=== PATIENT | male | born 1945 | race Caucasian/White ===

== ENCOUNTER 2021-03-26 08:26 | Inpatient (IN) ==
[2021-03-26] MEDS ORDERED: 0.9 % Sodium Chloride 1,000 ML ONE ×2 (08:55→09:44)
[2021-03-26] MEDS ORDERED: *HR* Midazolam HCl 2 MG/2 ML VIAL ONE (09:44)
[2021-03-26] MEDS ORDERED: *HR* FentaNYL (PF) 100 MCG/2 ML VIAL ONE (09:44)
[2021-03-26] MEDS ORDERED: *HR* Heparin 10,000 UNIT/10 ML VIAL ONE (09:44)
[2021-03-26] MEDS ORDERED: Heparin 1,000 UNITS/500 mL 500 ML ONE (09:44)
[2021-03-26] MEDS ORDERED: ISOVUE-370 200 ML INFUS..BTL ONE (09:45)
[2021-03-26] MEDS ORDERED: Nitroglycerin 1,000 MCG/5 ML VIAL IV ONE (09:45)
[2021-03-26] MEDS ORDERED: Albuterol 2.5 MG/3 ML NEBULIZER IH PRN (17:57)
[2021-03-26] MEDS ORDERED: Nitroglycerin 0.4 MG TAB.SUBL SL PRN (17:57)
[2021-03-26] MEDS: 0.9 % Sodium Chloride 1,000 ML IVC SCH ×2 (19:09→22:30)
[2021-03-26] MEDS: Gabapentin 400 MG CAPSULE PO SCH (20:57)
[2021-03-26] MEDS: Baclofen 10 MG TABLET PO SCH (20:58)
[2021-03-26] MEDS: Acetaminophen 325 MG TABLET PO PRN (22:29)
[2021-03-26] MEDS: Budesonide/Formoterol 160/4.5 1 PUFF INH IH SCH (22:30)
[2021-03-27 06:43] LABS: Basophils % 0.4 %; Eosinophils # 0.1 K/mcL (0.0-0.6); Hematocrit 45.1 % (37.5-50.1); Hemoglobin 15.2 g/dL (12.9-16.9); Immature Granulocytes % 0.4 % (0-4); Lymphocytes % 28.9 %; Mean Corpuscular HGB Conc 33.7 g/dL (31.6-35.5); Mean Corpuscular Hemoglobin 30.3 pg (28.0-33.3); Mean Platelet Volume 9.2 fL (9.4-12.4); Monocytes # 0.7 K/mcL (0.0-1.3); Monocytes % 10.2 %; Neutrophils # 4.1 K/mcL (1.6-8.9); Platelet Count 218 K/mcL (140-400); Red Blood Count 5.01 M/mcL (4.19-5.50); Red Cell Distribution Width 13.2 % (11.5-14.5); Segmented Neutrophils % 58.1 %
[2021-03-27 07:02] LABS: BUN/Creatinine Ratio 14 (6-26); Blood Urea Nitrogen 12 mg/dL (8-23); Calcium 9.2 mg/dL (8.6-10.3); Carbon Dioxide 26 mEq/L (23-29); Chloride 109 mEq/L (98-107); Glucose 100 mg/dL (70-105); Osmolality,Calculated 292 (280-300); Potassium 4.1 mEq/L (3.5-5.1); Sodium 141 mEq/L (136-145); eGFR For African Americans > 60 (> 60); eGFR For Non-African Americans > 60 (> 60)
[2021-03-27] MEDS ORDERED: Perflutren Lipid Microsphere 1.3 ML in 0.9 % Sodium Chloride 8.7 ML IVP PRN (07:47)
[2021-03-27] MEDS: Gabapentin 400 MG CAPSULE PO SCH ×3 (08:25→22:36)
[2021-03-27] MEDS: 0.9 % Sodium Chloride 1,000 ML IVC SCH (08:25)
[2021-03-27] MEDS: Metoprolol XL (24 HR) Succ 50 MG TAB.ER.24H PO SCH (08:25)
[2021-03-27] MEDS: Aspirin 81 MG TAB.CHEW PO SCH (08:25)
[2021-03-27] MEDS: Baclofen 10 MG TABLET PO SCH ×2 (08:26→22:36)
[2021-03-27] MEDS ORDERED: amLODIPine 5 MG TABLET PO SCH ×2 (09:00)
[2021-03-27] MEDS ORDERED: Chlorhexidine Rinse 15 ML MOUTHWASH MM SCH (09:00)
[2021-03-27] MEDS ORDERED: amLODIPine 5 MG TABLET PO ONE (09:12)
[2021-03-27 09:22] LABS: Estimated Average Glucose 120 mg/dl; Hemoglobin A1C 5.8 %
[2021-03-27] MEDS: Budesonide/Formoterol 160/4.5 1 PUFF INH IH SCH ×2 (10:08→19:41)
[2021-03-27] MEDS: Tiotropium 10 INH DOSE IH SCH (10:08)
[2021-03-28] MEDS: Budesonide/Formoterol 160/4.5 1 PUFF INH IH SCH ×2 (07:39→20:01)
[2021-03-28] MEDS: Tiotropium 10 INH DOSE IH SCH (07:40)
[2021-03-28] MEDS: Isosorbide MONOnitrate (24 HR) 30 MG TAB.ER.24H PO SCH (10:01)
[2021-03-28] MEDS: Baclofen 10 MG TABLET PO SCH ×2 (10:01→21:48)
[2021-03-28] MEDS: Aspirin 81 MG TAB.CHEW PO SCH (10:01)
[2021-03-28] MEDS: Metoprolol XL (24 HR) Succ 50 MG TAB.ER.24H PO SCH (10:01)
[2021-03-28] MEDS: amLODIPine 5 MG TABLET PO SCH (10:01)
[2021-03-28] MEDS: Gabapentin 400 MG CAPSULE PO SCH ×3 (10:01→21:48)
[2021-03-29] MEDS: Tiotropium 10 INH DOSE IH SCH (07:32)
[2021-03-29] MEDS: Budesonide/Formoterol 160/4.5 1 PUFF INH IH SCH ×2 (07:32→20:02)
[2021-03-29] MEDS: Metoprolol XL (24 HR) Succ 50 MG TAB.ER.24H PO SCH (09:31)
[2021-03-29] MEDS: Baclofen 10 MG TABLET PO SCH ×2 (09:32→20:57)
[2021-03-29] MEDS: Isosorbide MONOnitrate (24 HR) 30 MG TAB.ER.24H PO SCH (09:32)
[2021-03-29] MEDS: amLODIPine 5 MG TABLET PO SCH (09:32)
[2021-03-29] MEDS: Aspirin 81 MG TAB.CHEW PO SCH (09:32)
[2021-03-29] MEDS: Gabapentin 400 MG CAPSULE PO SCH ×3 (09:32→20:56)
[2021-03-29] MEDS: Chlorhexidine Rinse 15 ML MOUTHWASH MM SCH (20:57)
[2021-03-29] MEDS: Acetaminophen 325 MG TABLET PO PRN (22:02)
[2021-03-30 00:07] LABS: Adenovirus Not Detected (Not Detect); Coronavirus 229E Not Detected (Not Detect); Coronavirus HKU1 Not Detected (Not Detect); Coronavirus NL63 Not Detected (Not Detect); Coronavirus OC43 Not Detected (Not Detect); SARS-CoV-2 Not Detected (Not Detect)
[2021-03-30 00:08] LABS: Bordetella Pertussis Not Detected (Not Detect); Chlamydophila pneumoniae Not Detected (Not Detect); Human Metapneumovirus Not Detected (Not Detect); Human Rhinovirus/Enterovirus Not Detected (Not Detect); Influenza A Subtype 2009 H1 Not Detected (Not Detect); Influenza B Not Detected (Not Detect); Mycoplasma pneumoniae Not Detected (Not Detect); Parainfluenza Virus 1 Not Detected (Not Detect); Parainfluenza Virus 2 Not Detected (Not Detect); Parainfluenza Virus 3 Not Detected (Not Detect); Parainfluenza Virus 4 Not Detected (Not Detect); Respiratory Syncytial Virus Not Detected (Not Detect)
[2021-03-30] MEDS: Chlorhexidine Rinse 15 ML MOUTHWASH MM SCH ×2 (05:57→19:46)
[2021-03-30] MEDS ORDERED: Aspirin 81 MG TAB.CHEW PO ONE (06:00)
[2021-03-30] MEDS ORDERED: *HR* Vasopressin 20 UNIT/ML VIAL ONE (06:53)
[2021-03-30] MEDS ORDERED: *HR* FentaNYL (PF) 1,000 MCG/20 ML VIAL ONE (06:56)
[2021-03-30] MEDS ORDERED: *HR* Midazolam HCl 5 MG/5 ML VIAL IVP ONE (06:56)
[2021-03-30] MEDS ORDERED: *HR* Propofol 200 MG/20 ML VIAL IVP ONE (06:56)
[2021-03-30] MEDS ORDERED: Lidocaine 2% Syringe 100 MG/5 ML ONE (06:57)
[2021-03-30] MEDS ORDERED: Famotidine 20 MG/2 ML VIAL ONE (06:57)
[2021-03-30] MEDS ORDERED: *HR* Rocuronium Bromide 50 MG/5 ML VIAL ONE ×2 (06:57→09:35)
[2021-03-30] MEDS ORDERED: *HR* Magnesium Sulfate 1 GM/2 ML VIAL ONE (06:57)
[2021-03-30] MEDS ORDERED: Tranexamic Acid 1,000 MG/10 ML VIAL ONE (06:59)
[2021-03-30] MEDS ORDERED: Papaverine 60 MG/2 ML VIAL IVP ONE (06:59)
[2021-03-30] MEDS ORDERED: CeFAZolin Syr 2,000MG/20 ML 2,000 MG/20 ML SYRINGE IVPB ONE (07:00)
[2021-03-30] MEDS: Budesonide/Formoterol 160/4.5 1 PUFF INH IH SCH ×2 (07:18→19:46)
[2021-03-30] MEDS: Tiotropium 10 INH DOSE IH SCH (07:18)
[2021-03-30] MEDS ORDERED: Heparin 15,000 UNIT in 0.9 % Sodium Chloride 500 ML IV ONE (07:45)
[2021-03-30] MEDS ORDERED: Dextrose 50 % in Water (Vial) 30 ML, Sodium Bicarbonate 20 MEQ, Potassium Chloride 15 M... TH ONE (07:45)
[2021-03-30] MEDS ORDERED: Norepinephrine 4 MG in 0.9 % Sodium Chloride 250 ML IVC PRN (07:45)
[2021-03-30] MEDS ORDERED: Dextrose 50 % in Water (Vial) 30 ML, Sodium Bicarbonate 20 MEQ, Lidocaine 1% 5 ML, Insu... TH ONE ×3 (07:45)
[2021-03-30 08:11] LABS: ABG Base Excess -1 mEq/L (-2 to 3); ABG Chloride 107 mEq/L (98-107); ABG Glucose 110 mg/dL (60-95); ABG HCO3 25 mEq/L (21-27); ABG Ionized Calcium 1.27 mmol/L (1.15-1.35); ABG Oxygen Saturation 99 % (95-98); ABG PCO2 48 mmHg (35-45); ABG PH 7.33 pH Units (7.32-7.45); ABG PO2 162 mmHg (85-104); ABG TCO2 27 mEq/L (20-26)
[2021-03-30] MEDS ORDERED: *HR* FentaNYL (PF) 250 MCG/5 ML VIAL ONE (09:20)
[2021-03-30 09:36] LABS: ABG Base Excess -2 mEq/L (-2 to 3); ABG Chloride 110 mEq/L (98-107); ABG Glucose 115 mg/dL (60-95); ABG HCO3 23 mEq/L (21-27); ABG Ionized Calcium 1.15 mmol/L (1.15-1.35); ABG Oxygen Saturation 100 % (95-98); ABG PCO2 40 mmHg (35-45); ABG PH 7.37 pH Units (7.32-7.45); ABG PO2 220 mmHg (85-104); ABG TCO2 24 mEq/L (20-26)
[2021-03-30] MEDS ORDERED: Calcium Gluconate 1,000 MG/10 ML VIAL ONE (09:47)
[2021-03-30] MEDS ORDERED: Protamine Sulfate 250 MG/25 ML VIAL IVP ONE (09:47)
[2021-03-30] MEDS ORDERED: Protamine Sulfate 50 MG/5 ML VIAL IVP ONE (09:47)
[2021-03-30 10:13] LABS: ABG Base Excess 1 mEq/L (-2 to 3); ABG Chloride 100 mEq/L (98-107); ABG Glucose 191 mg/dL (60-95); ABG HCO3 26 mEq/L (21-27); ABG Oxygen Saturation 100 % (95-98); ABG PCO2 44 mmHg (35-45); ABG PH 7.38 pH Units (7.32-7.45); ABG PO2 355 mmHg (85-104); ABG TCO2 27 mEq/L (20-26)
[2021-03-30 10:35] LABS: ABG Base Excess 1 mEq/L (-2 to 3); ABG Chloride 102 mEq/L (98-107); ABG Glucose 196 mg/dL (60-95); ABG HCO3 26 mEq/L (21-27); ABG Ionized Calcium 1.02 mmol/L (1.15-1.35); ABG Oxygen Saturation 100 % (95-98); ABG PCO2 46 mmHg (35-45); ABG PH 7.37 pH Units (7.32-7.45); ABG PO2 305 mmHg (85-104); ABG TCO2 28 mEq/L (20-26)
[2021-03-30 11:01] LABS: ABG Base Excess 1 mEq/L (-2 to 3); ABG Chloride 103 mEq/L (98-107); ABG Glucose 160 mg/dL (60-95); ABG HCO3 26 mEq/L (21-27); ABG Ionized Calcium 1.05 mmol/L (1.15-1.35); ABG Oxygen Saturation 100 % (95-98); ABG PCO2 44 mmHg (35-45); ABG PH 7.38 pH Units (7.32-7.45); ABG PO2 259 mmHg (85-104); ABG TCO2 27 mEq/L (20-26)
[2021-03-30] MEDS ORDERED: Mannitol 25% vial 12.5 GM/50 ML VIAL IVPB ONE (11:11)
[2021-03-30] MEDS ORDERED: Albumin Human 25% 25 GM/100 ML IV.SOLN IVPB ONE (11:11)
[2021-03-30] MEDS ORDERED: Clindamycin 600 MG/50 ML IV.SOLN IVPB ONE (11:11)
[2021-03-30] MEDS ORDERED: *HR* Heparin 10,000 UNIT/10 ML VIAL IR ONE (11:11)
[2021-03-30] MEDS ORDERED: Lidocaine 2% Syringe 100 MG/5 ML IVP ONE (11:11)
[2021-03-30] MEDS ORDERED: D5% in Water 250 ML IV BAG IV ONE (11:11)
[2021-03-30] MEDS ORDERED: Heparin 1,000 UNITS/500 mL IV.SOLN IR ONE (11:11)
[2021-03-30] MEDS ORDERED: Tranexamic Acid 1,000 MG/10 ML VIAL IR ONE (11:11)
[2021-03-30] MEDS ORDERED: *HR* Phenylephrine 10 MG/ML VIAL IVC ONE (11:11)
[2021-03-30] MEDS ORDERED: *HR* Magnesium Sulfate 2 GM/50 ML PIGGYBACK IVPB ONE (11:11)
[2021-03-30] MEDS ORDERED: Albumin Human 5% 25.0 GM/500 ML IV.SOLN ONE (11:29)
[2021-03-30 11:49] LABS: ABG Base Excess -1 mEq/L (-2 to 3); ABG Chloride 106 mEq/L (98-107); ABG Glucose 97 mg/dL (60-95); ABG HCO3 23 mEq/L (21-27); ABG Ionized Calcium 1.26 mmol/L (1.15-1.35); ABG Oxygen Saturation 98 % (95-98); ABG PCO2 37 mmHg (35-45); ABG PH 7.41 pH Units (7.32-7.45); ABG PO2 111 mmHg (85-104); ABG TCO2 25 mEq/L (20-26)
[2021-03-30] MEDS ORDERED: Naloxone 0.4 MG/ML INJ IVP PRN (12:12)
[2021-03-30] MEDS ORDERED: Insulin Regular, Human 100 UNIT/ML IV PRN (12:12)
[2021-03-30] MEDS ORDERED: *HR* Dextrose 50 % in Water (Vial) 50 ML VIAL IVP PRN (12:12)
[2021-03-30] MEDS ORDERED: Albumin Human 5% 12.5 GM/250 ML IV.SOLN IVPB PRN (12:12)
[2021-03-30] MEDS ORDERED: Sennosides 8.6 MG TABLET PO PRN (12:12)
[2021-03-30] MEDS ORDERED: Potassium Chloride 40 MEQ/200 ML BAG IVPB PRN (12:12)
[2021-03-30 12:45] LABS: ABG Base Excess 1 mEq/L (-2 to 3); ABG HCO3 27 mEq/L (21-27); ABG Oxygen Saturation 100 % (95-98); ABG PCO2 47 mmHg (35-45); ABG PH 7.36 pH Units (7.32-7.45); ABG PO2 238 mmHg (85-104); ABG TCO2 28 mEq/L (20-26); Blood Gas Modality ASSIST CONTROL; Blood Gas VT 650 cc
[2021-03-30] MEDS: 0.9 % Sodium Chloride 1,000 ML IVC SCH (13:00)
[2021-03-30 13:02] LABS: Basophils % 0.2 %; Eosinophils # 0.1 K/mcL (0.0-0.6); Eosinophils % 0.6 %; Hematocrit 33.9 % (37.5-50.1); Immature Granulocytes % 1.3 % (0-4); Lymphocytes % 12.8 %; Mean Corpuscular HGB Conc 34.2 g/dL (31.6-35.5); Mean Corpuscular Hemoglobin 30.5 pg (28.0-33.3); Mean Corpuscular Volume 89.2 fL (83.0-100.0); Mean Platelet Volume 9.2 fL (9.4-12.4); Monocytes % 6.4 %; Neutrophils # 12.4 K/mcL (1.6-8.9); Platelet Count 145 K/mcL (140-400); Red Cell Distribution Width 13.2 % (11.5-14.5); Segmented Neutrophils % 78.7 %
[2021-03-30 13:03] LABS: Hemoglobin 11.6 g/dL (12.9-16.9); White Blood Count 15.7 K/mcL (4.3-11.1)
[2021-03-30 13:09] LABS: INR 1.2
[2021-03-30 13:11] LABS: Activated Partial Thrombo Time 26.2 Seconds (26.0-36.0)
[2021-03-30 13:14] LABS: Prothrombin Time 14.2 Seconds (9.4-12.1)
[2021-03-30 13:17] LABS: BUN/Creatinine Ratio 18 (6-26); Blood Urea Nitrogen 17 mg/dL (8-23); Calcium 8.5 mg/dL (8.6-10.3); Carbon Dioxide 25 mEq/L (23-29); Chloride 109 mEq/L (98-107); Glucose 92 mg/dL (70-105); Magnesium 3.1 mg/dL (1.6-2.6); Osmolality,Calculated 293 (280-300); Potassium 3.6 mEq/L (3.5-5.1); Sodium 141 mEq/L (136-145); eGFR For African Americans > 60 (> 60); eGFR For Non-African Americans > 60 (> 60)
[2021-03-30] MEDS: Baclofen 10 MG TABLET PO SCH ×2 (13:28→19:26)
[2021-03-30] MEDS: Gabapentin 400 MG CAPSULE PO SCH ×3 (13:28→19:45)
[2021-03-30] MEDS: Isosorbide MONOnitrate (24 HR) 30 MG TAB.ER.24H PO SCH (13:28)
[2021-03-30] MEDS: Metoprolol XL (24 HR) Succ 50 MG TAB.ER.24H PO SCH (13:28)
[2021-03-30] MEDS ORDERED: Amiodarone Premix 360 MG/200 ML BAG IVC ONE (13:31)
[2021-03-30] MEDS: Norepinephrine 4 MG/254 ML IV.SOLN IVC SCH (13:46)
[2021-03-30] MEDS: *HR* FentaNYL (PF) 100 MCG/2 ML VIAL IVP PRN ×3 (14:23→20:30)
[2021-03-30] MEDS: CeFAZolin 2 GM/120 ML BAG IVPB SCH ×2 (15:12→23:02)
[2021-03-30] MEDS: niCARdipine 20 MG/200 ML MLS IVC SCH ×4 (15:53→23:03)
[2021-03-30 16:10] LABS: ABG Base Excess -1 mEq/L (-2 to 3); ABG HCO3 23 mEq/L (21-27); ABG Oxygen Saturation 97 % (95-98); ABG PCO2 33 mmHg (35-45); ABG PH 7.45 pH Units (7.32-7.45); ABG PO2 87 mmHg (85-104); ABG TCO2 24 mEq/L (20-26); Blood Gas VT 650 cc
[2021-03-30 18:32] LABS: ABG Base Excess 0 mEq/L (-2 to 3); ABG HCO3 24 mEq/L (21-27); ABG Oxygen Saturation 97 % (95-98); ABG PCO2 34 mmHg (35-45); ABG PH 7.45 pH Units (7.32-7.45); ABG PO2 87 mmHg (85-104); ABG TCO2 25 mEq/L (20-26); Blood Gas Pressure Support 12 cm H2O
[2021-03-30] MEDS ORDERED: Ondansetron 4 MG/2 ML VIAL ONE (18:41)
[2021-03-30] MEDS: Ondansetron 4 MG/2 ML VIAL IVP PRN (19:03)
[2021-03-30] MEDS: Amiodarone Premix 360 MG/200 ML BAG IVC SCH (19:26)
[2021-03-30 20:08] LABS: ABG Base Excess -2 mEq/L (-2 to 3); ABG HCO3 23 mEq/L (21-27); ABG Oxygen Saturation 96 % (95-98); ABG PCO2 38 mmHg (35-45); ABG PH 7.39 pH Units (7.32-7.45); ABG PO2 84 mmHg (85-104); ABG TCO2 24 mEq/L (20-26)
[2021-03-31] MEDS: *HR* FentaNYL (PF) 100 MCG/2 ML VIAL IVP PRN ×7 (01:07→16:02)
[2021-03-31] MEDS: Ondansetron 4 MG/2 ML VIAL IVP PRN ×3 (01:07→19:42)
[2021-03-31] MEDS: niCARdipine 20 MG/200 ML MLS IVC SCH ×5 (03:33→20:24)
[2021-03-31] MEDS: 0.9 % Sodium Chloride 1,000 ML IVC SCH (03:56)
[2021-03-31 04:21] LABS: Basophils % 0.1 %; Hematocrit 30.5 % (37.5-50.1); Hemoglobin 10.4 g/dL (12.9-16.9); Immature Granulocytes % 0.6 % (0-4); Lymphocytes # 1.6 K/mcL (0.6-4.6); Lymphocytes % 9.6 %; Mean Corpuscular HGB Conc 34.1 g/dL (31.6-35.5); Mean Corpuscular Volume 87.9 fL (83.0-100.0); Mean Platelet Volume 9.6 fL (9.4-12.4); Monocytes # 1.7 K/mcL (0.0-1.3); Monocytes % 10.4 %; Neutrophils # 13.3 K/mcL (1.6-8.9); Platelet Count 133 K/mcL (140-400); Red Blood Count 3.47 M/mcL (4.19-5.50); Red Cell Distribution Width 13.4 % (11.5-14.5); Segmented Neutrophils % 79.3 %; White Blood Count 16.7 K/mcL (4.3-11.1)
[2021-03-31 04:44] LABS: BUN/Creatinine Ratio 24 (6-26); Blood Urea Nitrogen 19 mg/dL (8-23); Calcium 8.1 mg/dL (8.6-10.3); Carbon Dioxide 22 mEq/L (23-29); Chloride 109 mEq/L (98-107); Glucose 159 mg/dL (70-105); Osmolality,Calculated 294 (280-300); Sodium 139 mEq/L (136-145); eGFR For African Americans > 60 (> 60); eGFR For Non-African Americans > 60 (> 60)
[2021-03-31] MEDS: Amiodarone Premix 360 MG/200 ML BAG IVC SCH ×2 (07:30→19:42)
[2021-03-31] MEDS: Aspirin Enteric Coated 81 MG Tablet PO SCH (07:36)
[2021-03-31] MEDS: Gabapentin 400 MG CAPSULE PO SCH ×3 (07:36→19:43)
[2021-03-31] MEDS: Metoprolol XL (24 HR) Succ 50 MG TAB.ER.24H PO SCH (07:36)
[2021-03-31] MEDS: Isosorbide MONOnitrate (24 HR) 30 MG TAB.ER.24H PO SCH (07:37)
[2021-03-31] MEDS: Baclofen 10 MG TABLET PO SCH ×2 (07:37→19:43)
[2021-03-31] MEDS: Chlorhexidine Rinse 15 ML MOUTHWASH MM SCH ×2 (07:37→19:42)
[2021-03-31] MEDS: Tiotropium 10 INH DOSE IH SCH (07:42)
[2021-03-31] MEDS: Budesonide/Formoterol 160/4.5 1 PUFF INH IH SCH ×2 (07:42→19:44)
[2021-03-31] MEDS ORDERED: Furosemide 20 MG/2 ML VIAL IVP ONE (08:42)
[2021-03-31] MEDS ORDERED: amLODIPine 5 MG TABLET PO SCH (09:00)
[2021-03-31] MEDS ORDERED: Pantoprazole 40 MG VIAL IVP SCH (09:00)
[2021-03-31] MEDS: Norepinephrine 4 MG/254 ML IV.SOLN IVC SCH (13:19)
[2021-03-31] MEDS: Ketorolac 15 MG/ML VIAL IVP SCH ×2 (17:19→23:22)
[2021-04-01] MEDS: niCARdipine 20 MG/200 ML MLS IVC SCH ×3 (03:07→07:13)
[2021-04-01 04:33] LABS: Basophils % 0.1 %; Hematocrit 27.3 % (37.5-50.1); Hemoglobin 9.1 g/dL (12.9-16.9); Immature Granulocytes % 0.6 % (0-4); Lymphocytes # 2.6 K/mcL (0.6-4.6); Lymphocytes % 17.5 %; Mean Corpuscular HGB Conc 33.3 g/dL (31.6-35.5); Mean Corpuscular Hemoglobin 30.6 pg (28.0-33.3); Mean Corpuscular Volume 91.9 fL (83.0-100.0); Mean Platelet Volume 9.7 fL (9.4-12.4); Monocytes # 1.8 K/mcL (0.0-1.3); Monocytes % 12.1 %; Neutrophils # 10.2 K/mcL (1.6-8.9); Platelet Count 110 K/mcL (140-400); Red Blood Count 2.97 M/mcL (4.19-5.50); Red Cell Distribution Width 13.8 % (11.5-14.5); Segmented Neutrophils % 69.7 %; White Blood Count 14.7 K/mcL (4.3-11.1)
[2021-04-01 04:46] LABS: BUN/Creatinine Ratio 31 (6-26); Blood Urea Nitrogen 29 mg/dL (8-23); Calcium 8.1 mg/dL (8.6-10.3); Carbon Dioxide 28 mEq/L (23-29); Chloride 105 mEq/L (98-107); Glucose 118 mg/dL (70-105); Osmolality,Calculated 293 (280-300); Potassium 3.9 mEq/L (3.5-5.1); Sodium 138 mEq/L (136-145); eGFR For African Americans > 60 (> 60); eGFR For Non-African Americans > 60 (> 60)
[2021-04-01] MEDS: Ketorolac 15 MG/ML VIAL IVP SCH ×4 (05:09→23:27)
[2021-04-01] MEDS: Aspirin Enteric Coated 81 MG Tablet PO SCH ×2 (07:14→09:44)
[2021-04-01] MEDS: Gabapentin 400 MG CAPSULE PO SCH ×4 (07:14→19:40)
[2021-04-01] MEDS: Amiodarone Premix 360 MG/200 ML BAG IVC SCH (07:14)
[2021-04-01] MEDS: Chlorhexidine Rinse 15 ML MOUTHWASH MM SCH ×3 (07:15→19:41)
[2021-04-01] MEDS: Metoprolol XL (24 HR) Succ 50 MG TAB.ER.24H PO SCH ×2 (07:15→09:45)
[2021-04-01] MEDS: Baclofen 10 MG TABLET PO SCH ×3 (07:15→19:41)
[2021-04-01] MEDS: Tiotropium 10 INH DOSE IH SCH ×2 (07:41→11:06)
[2021-04-01] MEDS: Budesonide/Formoterol 160/4.5 1 PUFF INH IH SCH ×3 (07:46→20:10)
[2021-04-01] MEDS ORDERED: Albuterol 2.5 MG/3 ML NEBULIZER IH PRN (08:18)
[2021-04-01] MEDS ORDERED: Dextrose Gel 15 GM/37.5 ML TUBE PO PRN ×2 (08:18)
[2021-04-01] MEDS ORDERED: Naloxone 0.4 MG/ML INJ IVP PRN (08:18)
[2021-04-01] MEDS ORDERED: Nitroglycerin 0.4 MG TAB.SUBL SL PRN (08:18)
[2021-04-01] MEDS ORDERED: D5% in Water 1,000 ML IVC PRN (08:18)
[2021-04-01] MEDS ORDERED: Acetaminophen 325 MG TABLET PO PRN (08:18)
[2021-04-01] MEDS ORDERED: Amiodarone Premix 360 MG/200 ML BAG IVC SCH (08:18)
[2021-04-01] MEDS ORDERED: *HR* Dextrose 50 % in Water (Vial) 50 ML VIAL IVP PRN (08:18)
[2021-04-01] MEDS ORDERED: *HR* Amiodarone 200 MG TABLET PO SCH (09:00)
[2021-04-01] MEDS: Ondansetron 4 MG/2 ML VIAL IVP PRN ×2 (09:10→19:40)
[2021-04-01] MEDS: Isosorbide MONOnitrate (24 HR) 30 MG TAB.ER.24H PO SCH (09:45)
[2021-04-01] MEDS: *HR* Amiodarone 200 MG TABLET PO SCH ×2 (09:54→19:41)
[2021-04-01] MEDS: Insulin LISPRO 300 UNITS/3 ML VIAL SUBQ SCH ×3 (12:23→19:44)
[2021-04-01] MEDS: *HR* Heparin 5,000 UNIT/ML VIAL SQ SCH (17:50)
[2021-04-02 05:42] LABS: Basophils % 0.1 %; Eosinophils # 0.1 K/mcL (0.0-0.6); Eosinophils % 0.6 %; Hematocrit 27.8 % (37.5-50.1); Hemoglobin 8.9 g/dL (12.9-16.9); Immature Granulocytes % 0.7 % (0-4); Lymphocytes # 1.7 K/mcL (0.6-4.6); Lymphocytes % 15.1 %; Mean Corpuscular Hemoglobin 30.2 pg (28.0-33.3); Mean Corpuscular Volume 94.2 fL (83.0-100.0); Mean Platelet Volume 10.2 fL (9.4-12.4); Monocytes # 1.2 K/mcL (0.0-1.3); Monocytes % 10.4 %; Neutrophils # 8.1 K/mcL (1.6-8.9); Platelet Count 112 K/mcL (140-400); Red Blood Count 2.95 M/mcL (4.19-5.50); Red Cell Distribution Width 13.8 % (11.5-14.5); Segmented Neutrophils % 73.1 %; White Blood Count 11.1 K/mcL (4.3-11.1)
[2021-04-02 06:11] LABS: BUN/Creatinine Ratio 34 (6-26); Blood Urea Nitrogen 26 mg/dL (8-23); Calcium 8.2 mg/dL (8.6-10.3); Carbon Dioxide 30 mEq/L (23-29); Chloride 106 mEq/L (98-107); Glucose 102 mg/dL (70-105); Osmolality,Calculated 289 (280-300); Potassium 3.9 mEq/L (3.5-5.1); Sodium 137 mEq/L (136-145); eGFR For African Americans > 60 (> 60); eGFR For Non-African Americans > 60 (> 60)
[2021-04-02] MEDS: *HR* Heparin 5,000 UNIT/ML VIAL SQ SCH ×2 (06:12→17:56)
[2021-04-02] MEDS: Ketorolac 15 MG/ML VIAL IVP SCH ×4 (06:14→23:08)
[2021-04-02] MEDS: Chlorhexidine Rinse 15 ML MOUTHWASH MM SCH ×2 (07:50→20:12)
[2021-04-02] MEDS: Gabapentin 400 MG CAPSULE PO SCH ×3 (07:50→20:13)
[2021-04-02] MEDS: Metoprolol XL (24 HR) Succ 50 MG TAB.ER.24H PO SCH (07:51)
[2021-04-02] MEDS: *HR* Amiodarone 200 MG TABLET PO SCH ×2 (07:51→20:12)
[2021-04-02] MEDS: Baclofen 10 MG TABLET PO SCH ×2 (07:51→20:13)
[2021-04-02] MEDS: Aspirin Enteric Coated 81 MG Tablet PO SCH (07:51)
[2021-04-02] MEDS: Isosorbide MONOnitrate (24 HR) 30 MG TAB.ER.24H PO SCH (07:52)
[2021-04-02] MEDS: Insulin LISPRO 300 UNITS/3 ML VIAL SUBQ SCH ×4 (07:52→20:13)
[2021-04-02] MEDS: Budesonide/Formoterol 160/4.5 1 PUFF INH IH SCH ×2 (07:53→23:32)
[2021-04-02] MEDS: Tiotropium 10 INH DOSE IH SCH (07:53)
[2021-04-02] MEDS ORDERED: MOM Conc 10 ML UD.LIQ PO PRN (08:59)
[2021-04-02] MEDS: Ondansetron 4 MG/2 ML VIAL IVP PRN (13:58)
[2021-04-03] MEDS: Ketorolac 15 MG/ML VIAL IVP SCH ×3 (05:01→16:19)
[2021-04-03] MEDS: *HR* Heparin 5,000 UNIT/ML VIAL SQ SCH ×2 (05:01→16:18)
[2021-04-03 05:34] LABS: Basophils % 0.1 %; Eosinophils # 0.2 K/mcL (0.0-0.6); Eosinophils % 2.1 %; Hematocrit 25.5 % (37.5-50.1); Hemoglobin 8.3 g/dL (12.9-16.9); Immature Granulocytes % 0.9 % (0-4); Lymphocytes # 1.2 K/mcL (0.6-4.6); Lymphocytes % 14.7 %; Mean Corpuscular HGB Conc 32.5 g/dL (31.6-35.5); Mean Corpuscular Hemoglobin 30.3 pg (28.0-33.3); Mean Corpuscular Volume 93.1 fL (83.0-100.0); Mean Platelet Volume 10.6 fL (9.4-12.4); Monocytes # 0.9 K/mcL (0.0-1.3); Monocytes % 10.5 %; Neutrophils # 6.1 K/mcL (1.6-8.9); Platelet Count 140 K/mcL (140-400); Red Blood Count 2.74 M/mcL (4.19-5.50); Red Cell Distribution Width 13.7 % (11.5-14.5); Segmented Neutrophils % 71.7 %; White Blood Count 8.5 K/mcL (4.3-11.1)
[2021-04-03 05:55] LABS: BUN/Creatinine Ratio 38 (6-26); Blood Urea Nitrogen 31 mg/dL (8-23); Calcium 8.4 mg/dL (8.6-10.3); Carbon Dioxide 32 mEq/L (23-29); Chloride 102 mEq/L (98-107); Glucose 104 mg/dL (70-105); Osmolality,Calculated 293 (280-300); Potassium 3.8 mEq/L (3.5-5.1); Sodium 138 mEq/L (136-145); eGFR For African Americans > 60 (> 60); eGFR For Non-African Americans > 60 (> 60)
[2021-04-03] MEDS: Budesonide/Formoterol 160/4.5 1 PUFF INH IH SCH ×2 (07:36→19:59)
[2021-04-03] MEDS: Tiotropium 10 INH DOSE IH SCH (07:36)
[2021-04-03] MEDS: Chlorhexidine Rinse 15 ML MOUTHWASH MM SCH ×2 (07:58→20:30)
[2021-04-03] MEDS: Aspirin Enteric Coated 81 MG Tablet PO SCH (07:58)
[2021-04-03] MEDS: Baclofen 10 MG TABLET PO SCH ×2 (07:59→20:30)
[2021-04-03] MEDS: Gabapentin 400 MG CAPSULE PO SCH ×3 (07:59→20:30)
[2021-04-03] MEDS: Isosorbide MONOnitrate (24 HR) 30 MG TAB.ER.24H PO SCH (07:59)
[2021-04-03] MEDS: Metoprolol XL (24 HR) Succ 50 MG TAB.ER.24H PO SCH (07:59)
[2021-04-03] MEDS: *HR* Amiodarone 200 MG TABLET PO SCH ×2 (08:00→20:30)
[2021-04-03] MEDS: Insulin LISPRO 300 UNITS/3 ML VIAL SUBQ SCH ×4 (08:05→20:31)
[2021-04-03] MEDS: Ondansetron 4 MG/2 ML VIAL IVP PRN ×2 (09:49→20:31)
[2021-04-04] MEDS: *HR* Heparin 5,000 UNIT/ML VIAL SQ SCH ×2 (05:40→16:45)
[2021-04-04] MEDS: Tiotropium 10 INH DOSE IH SCH (07:42)
[2021-04-04] MEDS: Budesonide/Formoterol 160/4.5 1 PUFF INH IH SCH ×2 (07:42→20:10)
[2021-04-04] MEDS: Insulin LISPRO 300 UNITS/3 ML VIAL SUBQ SCH ×4 (08:06→20:59)
[2021-04-04] MEDS: Isosorbide MONOnitrate (24 HR) 30 MG TAB.ER.24H PO SCH (08:11)
[2021-04-04] MEDS: Metoprolol XL (24 HR) Succ 50 MG TAB.ER.24H PO SCH (08:11)
[2021-04-04] MEDS: Baclofen 10 MG TABLET PO SCH ×2 (08:11→21:02)
[2021-04-04] MEDS: *HR* Amiodarone 200 MG TABLET PO SCH ×2 (08:11→21:03)
[2021-04-04] MEDS: Chlorhexidine Rinse 15 ML MOUTHWASH MM SCH ×2 (08:11→21:04)
[2021-04-04] MEDS: Aspirin Enteric Coated 81 MG Tablet PO SCH (08:11)
[2021-04-04] MEDS: Gabapentin 400 MG CAPSULE PO SCH ×3 (08:11→21:03)
[2021-04-04] MEDS: polyethylene glycoL 3350 17 GM POWD.PACK PO SCH (10:47)
[2021-04-04] MEDS: Amoxicillin/Clavulanate 500 MG TABLET PO SCH ×3 (10:47→21:04)
[2021-04-04] MEDS: Ondansetron 4 MG/2 ML VIAL IVP PRN (10:48)
[2021-04-04] MEDS: Sennosides 8.6 MG TABLET PO PRN ×2 (10:48→21:03)
[2021-04-05 00:26] LABS: Basophils % 0.2 %; Eosinophils # 0.3 K/mcL (0.0-0.6); Eosinophils % 2.6 %; Hematocrit 28.9 % (37.5-50.1); Hemoglobin 9.8 g/dL (12.9-16.9); Immature Granulocytes % 1.9 % (0-4); Lymphocytes # 1.6 K/mcL (0.6-4.6); Lymphocytes % 16.8 %; Mean Corpuscular HGB Conc 33.9 g/dL (31.6-35.5); Mean Corpuscular Hemoglobin 31.3 pg (28.0-33.3); Mean Corpuscular Volume 92.3 fL (83.0-100.0); Mean Platelet Volume 9.6 fL (9.4-12.4); Monocytes # 1.1 K/mcL (0.0-1.3); Monocytes % 11.7 %; Neutrophils # 6.3 K/mcL (1.6-8.9); Platelet Count 224 K/mcL (140-400); Red Blood Count 3.13 M/mcL (4.19-5.50); Red Cell Distribution Width 13.4 % (11.5-14.5); Segmented Neutrophils % 66.8 %; White Blood Count 9.5 K/mcL (4.3-11.1)
[2021-04-05 01:05] LABS: BUN/Creatinine Ratio 24 (6-26); Blood Urea Nitrogen 16 mg/dL (8-23); Calcium 8.7 mg/dL (8.6-10.3); Carbon Dioxide 32 mEq/L (23-29); Chloride 99 mEq/L (98-107); Glucose 117 mg/dL (70-105); Osmolality,Calculated 286 (280-300); Potassium 4.1 mEq/L (3.5-5.1); Sodium 137 mEq/L (136-145); eGFR For African Americans > 60 (> 60); eGFR For Non-African Americans > 60 (> 60)
[2021-04-05] MEDS: *HR* Heparin 5,000 UNIT/ML VIAL SQ SCH ×2 (05:56→17:05)
[2021-04-05] MEDS: Insulin LISPRO 300 UNITS/3 ML VIAL SUBQ SCH ×4 (07:30→21:15)
[2021-04-05] MEDS: polyethylene glycoL 3350 17 GM POWD.PACK PO SCH (07:40)
[2021-04-05] MEDS: Chlorhexidine Rinse 15 ML MOUTHWASH MM SCH ×2 (07:40→21:15)
[2021-04-05] MEDS: Aspirin Enteric Coated 81 MG Tablet PO SCH (07:41)
[2021-04-05] MEDS: Metoprolol XL (24 HR) Succ 50 MG TAB.ER.24H PO SCH (07:41)
[2021-04-05] MEDS: Amoxicillin/Clavulanate 500 MG TABLET PO SCH ×3 (07:41→21:15)
[2021-04-05] MEDS: Baclofen 10 MG TABLET PO SCH ×2 (07:42→21:15)
[2021-04-05] MEDS: Gabapentin 400 MG CAPSULE PO SCH ×3 (07:42→21:15)
[2021-04-05] MEDS: *HR* Amiodarone 200 MG TABLET PO SCH ×2 (07:42→21:15)
[2021-04-05] MEDS: Isosorbide MONOnitrate (24 HR) 30 MG TAB.ER.24H PO SCH (07:42)
[2021-04-05] MEDS: Budesonide/Formoterol 160/4.5 1 PUFF INH IH SCH ×2 (07:48→20:03)
[2021-04-05] MEDS: Tiotropium 10 INH DOSE IH SCH (07:49)
[2021-04-05] MEDS ORDERED: Milk and Molasses Enema 200 ML RC ONE (08:46)
[2021-04-05] MEDS: Ondansetron 4 MG/2 ML VIAL IVP PRN (20:05)
[2021-04-06] MEDS: *HR* Heparin 5,000 UNIT/ML VIAL SQ SCH ×2 (05:59→17:09)
[2021-04-06] MEDS: Insulin LISPRO 300 UNITS/3 ML VIAL SUBQ SCH ×5 (07:46→23:30)
[2021-04-06] MEDS: Budesonide/Formoterol 160/4.5 1 PUFF INH IH SCH ×2 (07:47→20:00)
[2021-04-06] MEDS: Tiotropium 10 INH DOSE IH SCH (07:47)
[2021-04-06] MEDS: Ondansetron 4 MG/2 ML VIAL IVP PRN (07:51)
[2021-04-06] MEDS: Chlorhexidine Rinse 15 ML MOUTHWASH MM SCH ×2 (07:54→21:17)
[2021-04-06] MEDS: Metoprolol XL (24 HR) Succ 50 MG TAB.ER.24H PO SCH (07:54)
[2021-04-06] MEDS: Aspirin Enteric Coated 81 MG Tablet PO SCH (07:54)
[2021-04-06] MEDS: Amoxicillin/Clavulanate 500 MG TABLET PO SCH ×3 (07:54→21:17)
[2021-04-06] MEDS: Baclofen 10 MG TABLET PO SCH ×2 (07:55→21:17)
[2021-04-06] MEDS: Isosorbide MONOnitrate (24 HR) 30 MG TAB.ER.24H PO SCH (07:55)
[2021-04-06] MEDS: polyethylene glycoL 3350 17 GM POWD.PACK PO SCH (07:55)
[2021-04-06] MEDS: *HR* Amiodarone 200 MG TABLET PO SCH ×2 (07:55→21:17)
[2021-04-06] MEDS: Gabapentin 400 MG CAPSULE PO SCH ×3 (07:55→21:16)
[2021-04-07] MEDS: *HR* Heparin 5,000 UNIT/ML VIAL SQ SCH (05:49)
[2021-04-07 07:34] VITALS: BP 134/82; PULSE 80; TEMP 98.3; O2SAT 96
[2021-04-07] MEDS: Baclofen 10 MG TABLET PO SCH (07:34)
[2021-04-07] MEDS: Metoprolol XL (24 HR) Succ 50 MG TAB.ER.24H PO SCH (07:34)
[2021-04-07] MEDS: Amoxicillin/Clavulanate 500 MG TABLET PO SCH (07:34)
[2021-04-07] MEDS: Chlorhexidine Rinse 15 ML MOUTHWASH MM SCH (07:34)
[2021-04-07] MEDS: *HR* Amiodarone 200 MG TABLET PO SCH (07:34)
[2021-04-07] MEDS: Aspirin Enteric Coated 81 MG Tablet PO SCH (07:34)
[2021-04-07] MEDS: Isosorbide MONOnitrate (24 HR) 30 MG TAB.ER.24H PO SCH (07:34)
[2021-04-07] MEDS: Gabapentin 400 MG CAPSULE PO SCH (07:35)
[2021-04-07] MEDS: Budesonide/Formoterol 160/4.5 1 PUFF INH IH SCH (07:37)
[2021-04-07] MEDS: Tiotropium 10 INH DOSE IH SCH (07:37)
[2021-04-07] MEDS: polyethylene glycoL 3350 17 GM POWD.PACK PO SCH (07:41)
== END 2021-04-07 10:45 | disposition home health service (06) | DRG 234 ==
LOC: INVDIALAB 08:26 → 2ANU 14:51 → ICNU 03-30 07:47 → 2NNU 04-03 11:49
PROVIDERS: ADMIT Internal Medicine Cardiovascular Disease; ATTEND Thoracic Surgery (Cardiothoracic Vascular Surgery)